=== PATIENT | male | born 1930 | race Caucasian/White ===

== ENCOUNTER 2016-08-16 05:19 | Inpatient (IN) | payer OTHER ==
[~2016-08-16 05:19] MED LIST: ceFAZolin 2 GM in Premix Bag 1 BAG IV ONE
[2016-08-16] MEDS ORDERED: Lactated Ringers 1,000 ML IV SCH ×3 (06:00→10:30)
[2016-08-16] MEDS ORDERED: Gentamicin 40 MG/ML 2 ML Vial ONE (06:37)
[2016-08-16] MEDS ORDERED: fentaNYL 100 MCG/2 ML SDV ONE (07:14)
[2016-08-16] MEDS ORDERED: Propofol 200 MG/20 ML SDV ONE ×2 (07:14→07:50)
[2016-08-16] MEDS ORDERED: ceFAZolin 2 GM in Premix Bag 1 BAG IV ONE (07:15)
[2016-08-16] MEDS: Tranexamic Acid 1,000 MG in Sodium Chloride 0.9% 50 ML IV SCH ×3 (07:49→09:38)
[2016-08-16] MEDS ORDERED: Ropivacaine 49.25 ML, Ketorolac 30 MG, EPINEPHrine 0.5 MG, cloNIDine 80 MCG, Sodium Chl... INJECT SCH ×5 (08:00)
[2016-08-16] MEDS ORDERED: Povidone-Iodine 10% Soln 118.25 ML Bottle ONE (08:52)
[2016-08-16] MEDS ORDERED: Bisacodyl 5 MG Tab PO PRN (09:24)
[2016-08-16] MEDS ORDERED: Docusate Sodium 100 MG Cap PO PRN (09:24)
[2016-08-16] MEDS ORDERED: Naloxone 0.4 MG/ML SDV IVPUSH PRN ×2 (09:24)
[2016-08-16] MEDS ORDERED: diphenhydrAMINE 50 MG/ML SDV IVPUSH PRN (09:24)
[2016-08-16] MEDS ORDERED: Ondansetron 4 MG/2 ML SDV IVPUSH PRN (09:24)
[2016-08-16] MEDS ORDERED: Morphine 2 MG/ML Syringe IVPUSH PRN (09:24)
[2016-08-16] MEDS ORDERED: Sennosides 8.6 MG Tab PO PRN (09:24)
[2016-08-16] MEDS ORDERED: Aluminum Hydroxide/Magnesium Hydroxide/Simethicone Susp 30 ML Cup PO PRN (09:24)
[2016-08-16] MEDS ORDERED: Zolpidem 5 MG Tab PO PRN (09:24)
[2016-08-16] MEDS ORDERED: Magnesium Hydroxide 400 MG/5 ML Susp 30 ML Cup PO PRN (09:24)
--- NOTE | 2016-08-16 09:54 | CR ---
Knee 1V or 2V Rt HISTORY: RIGHT KNEE SURGERY FINDINGS: Postoperative position and alignment right total knee arthroplasty appear satisfactory. No complicat ion can be seen. Anterior skin heather are noted. Air in the joint is consistent with the postoperat moi state. IMPRESSION: Satisfactory postoperative position and alignment right total knee arthroplasty. No complication jian ntified.
[2016-08-16] MEDS: Acetaminophen/oxyCODONE 325-5 MG Tab PO PRN ×3 (10:42→18:39)
--- NOTE | 2016-08-16 13:42 | OR ---
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 PROCEDURE: Right knee polyethylene exchange and full synovectomy. ANESTHESIA: Spinal plus conscious sedation. FLUID: Lactated Ringer solution. ESTIMATED BLOOD LOSS: 150 mL. COMPLICATIONS: None. SPECIMEN: None. DISCHARGE DISPOSITION: Stable to PACU. INSTRUMENTATION: Can Natural Nail #11 tibia right. HISTORY AND INDICATIONS FOR THE PROCEDURE: The patient had a total knee arthroplasty in 1995. He had done well until the last few months. He had extreme limited range of motion with pain. Preoperative imaging suggested the above-mentioned diagnosis. Risks and benefits of the procedure were explained to the patient. Informed consent was obtained. DETAILS OF PROCEDURE: The patient was seen preoperatively by myself and the anesthesia staff in the preop holding area, where the operative site was marked. He was brought to the operative suite by the Anesthesia staff, where conscious sedation and spinal anesthesia were administered. He was placed into a supine position on the table. All extremities were found to be well padded. A sterile Benjamin catheter was placed. The tourniquet was placed, which was well padded on the right side. The right lower extremity was then prepped and draped in a sterile manner. Time-out was called identifying the correct patient, correct procedure, correct site, and antibiotics had been given with appropriate period of time. Tourniquet was raised to 300 mmHg for 50 minutes and let down after the polyethylene insert was placed. A midline incision was made over the previous incision, three fingerbreadths proximal to the patella down to the level of the tibial tubercle. A medial parapatellar arthrotomy was made. A great deal of time was used to remove any hypertrophic synovium as well as extra bone which had formed within the distal femoral notch as well as around the patella, in a proximal tibia. The [employer] unit was used for hemostasis as well as Bovie electrocautery. The polyethylene insert was then removed using an osteotome. It appeared to be in relatively good condition. The knee was trialed with a 9 and 11. The 11 had less anterior-posterior motion in mid flexion, and provided excellent stability at full extension and 30 degrees of flexion with varus and valgus stress. I was able to remove a portion of the posterior capsule as well using Bovie electrocautery and Kochers. The knee was then copiously irrigated with saline. Any bleeders were controlled with the Aquamantys and then the final polyethylene was inserted. I then ranged the knee and was able to provide the previous mentioned stability with range of motion from full extension to 135 degrees of flexion. The knee was again copiously irrigated with saline and then with a diluted Betadine solution. Then, the knee was closed with two #5 Ethicon sutures as well as 0 Vicryl sutures in a [id number] watertight manner followed by irrigation, followed by 2- 0 Vicryl sutures, followed by heather, followed by Dermabond, followed by sterile dressing. The patient was then transferred to his hospital bed and taken to PACU in stable condition. José Luis Gonzalez DO /[id number]
[2016-08-16] MEDS: Pantoprazole 40 MG Tab.CR PO SCH (14:20)
[2016-08-16] MEDS: ceFAZolin 2 GM in Sodium Chloride 0.9% 50 ML IV SCH ×2 (14:22→21:41)
[2016-08-16] MEDS: Ketorolac 30 MG/ML SDV IVPUSH PRN (16:38)
--- NOTE | 2016-08-16 16:51 | PCM.CONS ---
H&P History of Present Illness - General Date of Service: 08/16/16 Admit Problem/Dx: Admission Diagnosis/Problem Admission Diagnosis/Problem Arthritis of knee Source of Information: Patient, Provider, RN Notes Reviewed History Limitations: Reports: No Limitations - History of Present Illness Initial Comments - Free Text/Narative: Mr. Bass is an 85-year-old gentleman been asked to see by Dr. Ananth Gonzalez for assistance in medical management after surgery. Patient underwent repair of the previous right total knee arthroplasty. He is been stable during the initial postoperative period, there was one episode of nausea but that now seems to resolve. He denies any chest pain or pressure or significant shortness of breath. Vital signs have been stable and he has remained afebrile. Right Knee Pain Score (Numeric/FACES): 9 - Related Data Allergies/Adverse Reactions: Allergies Allergy/AdvReac Type Severity Reaction Status Date / Time No Known Allergies Allergy Verified 05/04/15 13:00 Home Medications: Home Meds Omeprazole [priLOSEC OTC] 20 mg PO DAILY 05/04/15 [History] Aspirin 325 mg PO DAILY 05/05/15 [History] Ibuprofen [Advil] 200 mg PO Q6H PRN 07/14/16 [History] Alfuzosin [Uroxatral] 10 mg PO DAILY 08/16/16 [History] Calcium Carbonate/Vitamin D3 [Os-Tonio 500+D] 1 tab PO DAILY 08/16/16 [History] Cholecalciferol (Vitamin D3) [Vitamin D] 5,000 unit PO .M-W-F 08/16/16 [History] cycloSPORINE [Restasis Multidose] 1 drop EYEBOTH BID 08/16/16 [History] Past Medical History HEENT History: Reports: Cataract, Hard of Hearing, Impaired Vision, Other (See Below) Other HEENT History: wears glasses; bilat hearing aides; cornea problem Cardiovascular History: Reports: Blood Clots/VTE/DVT Gastrointestinal History: Reports: Colon Polyp, GERD, Hemorrhoids, Other (See Below) Other Gastrointestinal History: ulcers Genitourinary History: Reports: Prostate Disorder, Other (See Below) Other Genitourinary History: Prostate cancer Musculoskeletal History: Reports: Arthritis, Fracture, Osteoporosis, Other (See Below) 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 Neurological History: Reports: CVA, Other (See Below) Other Neuro History: crushed vertebrae in back r/t fall 1 year ago Endocrine/Metabolic History: Reports: Vitamin D Deficiency Hematologic History: Reports: Anemia, Blood Transfusion(s) Oncologic (Cancer) History: Reports: Malignant Melanoma, Prostate, Other (See Below) Other Oncologic History: skin caner Dermatologic History: Reports: Melanoma, Other (See Below) Other Dermatologic History: skin cancer - Infectious Disease History Infectious Disease History: Reports: Chicken Pox, Measles - Past Surgical History HEENT Surgical History: Reports: Cataract Surgery, LASIK, Tonsillectomy Cardiovascular Surgical History: Reports: None GI Surgical History: Reports: Appendectomy, Cholecystectomy, Colonoscopy, EGD, Hernia, Inguinal, Hernia Repair/Other Male Surgical History: Reports: Prostate Biopsy, Other (See Below) Other Male Surgeries/Procedures: prostates cancer. radiation Endocrine Surgical History: Reports: None Neurological Surgical History: Reports: None Musculoskeletal Surgical History: Reports: Knee Replacement Oncologic Surgical History: Reports: None Dermatological Surgical History: Reports: Skin Biopsy Social & Family History - Family History Neurological: Reports: CVA Hematologic: Reports: Anemia - Tobacco Use Smoking Status *Q: Former Smoker Years of Tobacco use: 15 Packs/Tins Daily: 1 Used Tobacco, but Quit: Yes Month Tobacco Last Used: 1961 Second Hand Smoke Exposure: No - Caffeine Use Caffeine Use: Reports: Coffee - Alcohol Use Days Per Week of Alcohol Use: 0 - Recreational Drug Use Recreational Drug Use: No H&P Review of Systems - Review of Systems: Review Of Systems: See Below General: Reports: No Symptoms Pulmonary: Reports: No Symptoms Cardiovascular: Reports: No Symptoms Gastrointestinal: Reports: No Symptoms Genitourinary: Reports: No Symptoms Musculoskeletal: Reports: Leg Pain Neurological: Reports: No Symptoms Exam - Exam Exam: See Below - Vital Signs Vital Signs: Last Vital Signs Temp 95.8 F 08/16/16 14:24 Pulse 74 08/16/16 14:24 Resp 16 08/16/16 14:24 BP 97/52 L 08/16/16 14:24 Pulse Ox 96 08/16/16 14:24 Weight: 170 lb 14.464 oz - Exam Neck: Supple, Trachea Midline, +2 Carotid Pulse wo Bruit Lungs: Clear to Auscultation, Normal Respiratory Effort Cardiovascular: Regular Rate, Regular Rhythm, Normal S1, Normal S2. No: Systolic Murmur, Diastolic Murmur Abdomen: Normal Bowel Sounds, Soft - Patient Data Lab Results last 24 hrs: Laboratory Results - last 24 hr 08/16/16 08/16/16 08/16/16 Range/Units 05:45 06:00 06:00 WBC 5.0 (4.5-11.0) K/uL RBC 3.50 L (4.30-5.90) M/uL Hgb 10.0 L D (12.0-15.0) g/dL Hct 30.9 L (40.0-54.0) % MCV 88 (80-98) fL MCH 29 (27-31) pg MCHC 32 (32-36) % Plt Count 250 (150-400) K/uL Neut % (Auto) 64 (36-66) % Lymph % (Auto) 22 L (24-44) % [place] % (Auto) 11 H (2-6) % Eos % (Auto) 3 (2-4) % Baso % (Auto) 0 (0-1) % Sodium 141 (140-148) mmol/L Potassium 3.8 (3.6-5.2) mmol/L Chloride 105 (100-108) mmol/L Carbon Dioxide 26 (21-32) mmol/L Anion Gap 9.7 (5.0-14.0) mmol/L BUN 15 (7-18) mg/dL Creatinine 1.2 (0.8-1.3) mg/dL Est Cr Clr Drug Dosing 43.54 mL/min Estimated GFR (MDRD) 58 L (>60) Glucose 115 H (74-106) mg/dL Calcium 8.3 L (8.5-10.1) mg/dL Total Bilirubin 0.7 (0.2-1.0) mg/dL AST 20 (15-37) U/L ALT 19 (12-78) U/L Alkaline Phosphatase 75 (46-116) U/L Total Protein 6.5 (6.4-8.2) g/dL Albumin 3.1 L (3.4-5.0) g/dL Globulin 3.4 (2.3-3.5) g/dL Albumin/Globulin Ratio 0.9 L (1.2-2.2) Blood Type O POSITIVE Gel Antibody Screen Negative Result Diagrams: 08/16/16 06:00 08/16/16 06:00 Consult PN Assessment/Plan Procedures: Procedures BLOOD TYPING SEROLOGIC ABO (07/14/16) BLOOD TYPING SEROLOGIC RH(D) (07/14/16) COMPLETE CBC W/AUTO DIFF WBC (05/12/16) CT CHEST SPINE W/O DYE (05/04/15) CT HEAD/BRAIN W/O DYE (05/04/15) CT NECK SPINE W/O DYE (05/04/15) CULTURE OTHR SPECIMN AEROBIC (07/14/16) CULTURE SCREEN ONLY (05/12/16) EMERGENCY DEPT VISIT (05/12/16) EMERGENCY DEPT VISIT (05/04/15) GAIT TRAINING THERAPY (12/25/15) HOT OR COLD PACKS THERAPY (12/05/13) INITIAL OBSERVATION CARE (05/04/15) INITIAL OBSERVATION CARE (05/04/15) OBSERVATION CARE DISCHARGE (05/04/15) PT EVALUATION (11/30/15) RBC ANTIBODY SCREEN (07/14/16) ROUTINE VENIPUNCTURE (07/14/16) STREP A AG IA (05/12/16) THERAPEUTIC EXERCISES (01/19/16) X-RAY EXAM OF HUMERUS (05/04/15) X-RAY EXAM OF KNEE 1 OR 2 (07/14/16) Problem List Initiated/Reviewed/Updated: Yes My Orders last 24 hours: My Active Orders 08/17/16 09:00 Omeprazole [priLOSEC OTC] 20 mg PO DAILY Plan: ASSESSMENT AND RECOMMENDATIONS STATUS POST SURGICAL PROCEDURE RIGHT KNEE-repair of previous total knee arthroplasty. Stable and doing well during the initial postoperative period. -Postoperative care per surgical service HISTORY OF PROSTATE CANCER-status post previous radiation therapy, resulting in frequent urination HISTORY OF MELANOMA-no evidence of recurrence on regular followup Requesting Provider: CORDELL Date Consult Requested: 08/16/16 Reason for Consult: Postop medical management Patient History Reviewed: Yes
[2016-08-16] MEDS: cycloSPORINE Ophth Drops U/D Box of 30 EYEBOTH SCH (20:10)
[2016-08-16] MEDS: Aspirin 325 MG Tab.EC PO SCH (20:11)
[2016-08-16] MEDS ORDERED: Aspirin 325 MG Tab.EC PO SCH (21:00)
[2016-08-16] MEDS ORDERED: Non-Formulary Medication 1 Each (Cyclosporine [Restasis Multidose] 1 DROP) EYEBOTH SCH (21:00)
[2016-08-17] MEDS: Acetaminophen/oxyCODONE 325-5 MG Tab PO PRN ×4 (02:32→21:25)
[2016-08-17] MEDS: ceFAZolin 2 GM in Sodium Chloride 0.9% 50 ML IV SCH (05:01)
[2016-08-17] MEDS: Ketorolac 30 MG/ML SDV IVPUSH PRN ×2 (06:34→16:13)
--- NOTE | 2016-08-17 08:32 | PCM.PN ---
- General Info Functional Status: Reports: pain controlled, tolerating diet, ambulating - Review of Systems General: Reports: No Symptoms HEENT: Reports: no symptoms Pulmonary: Reports: no symptoms Cardiovascular: Reports: No Symptoms Gastrointestinal: Reports: No symptoms Genitourinary: Reports: no symptoms Musculoskeletal: Reports: leg pain, joint pain Skin: Reports: other Neurological: Reports: No Symptoms Psychiatric: Reports: no symptoms - Patient Data Vitals - most recent: Last Vital Signs Temp 96.3 F 08/17/16 07:00 Pulse 70 08/17/16 07:00 Resp 16 08/17/16 07:00 BP 103/54 L 08/17/16 07:00 Pulse Ox 95 08/17/16 07:00 Weight - most recent: 170 lb 14.464 oz I&O - last 24 hours: Intake & Output 08/16/16 08/17/16 08/17/16 22:59 06:59 14:59 Intake Total 1012 1020 240 Output Total 250 260 Balance 762 760 240 Lab Results last 24 hrs: Laboratory Results - last 24 hr 08/16/16 08/16/16 08/17/16 Range/Units 06:00 06:00 05:57 WBC 5.0 5.6 (4.5-11.0) K/uL RBC 3.50 L 2.99 L (4.30-5.90) M/uL Hgb 10.0 L D 8.6 L (12.0-15.0) g/dL Hct 30.9 L 26.7 L (40.0-54.0) % MCV 88 89 (80-98) fL MCH 29 29 (27-31) pg MCHC 32 32 (32-36) % Plt Count 250 218 (150-400) K/uL Neut % (Auto) 64 70 H (36-66) % Lymph % (Auto) 22 L 18 L (24-44) % [place] % (Auto) 11 H 11 H (2-6) % Eos % (Auto) 3 1 L (2-4) % Baso % (Auto) 0 0 (0-1) % Sodium 141 (140-148) mmol/L Potassium 3.8 (3.6-5.2) mmol/L Chloride 105 (100-108) mmol/L Carbon Dioxide 26 (21-32) mmol/L Anion Gap 9.7 (5.0-14.0) mmol/L BUN 15 (7-18) mg/dL Creatinine 1.2 (0.8-1.3) mg/dL Est Cr Clr Drug Dosing 43.54 mL/min Estimated GFR (MDRD) 58 L (>60) Glucose 115 H (74-106) mg/dL Calcium 8.3 L (8.5-10.1) mg/dL Total Bilirubin 0.7 (0.2-1.0) mg/dL AST 20 (15-37) U/L ALT 19 (12-78) U/L Alkaline Phosphatase 75 (46-116) U/L Total Protein 6.5 (6.4-8.2) g/dL Albumin 3.1 L (3.4-5.0) g/dL Globulin 3.4 (2.3-3.5) g/dL Albumin/Globulin Ratio 0.9 L (1.2-2.2) / Range/Units 05:57 WBC (4.5-11.0) K/uL RBC (4.30-5.90) M/uL Hgb (12.0-15.0) g/dL Hct (40.0-54.0) % MCV (80-98) fL MCH (27-31) pg MCHC (32-36) % Plt Count (150-400) K/uL Neut % (Auto) (36-66) % Lymph % (Auto) (24-44) % [place] % (Auto) (2-6) % Eos % (Auto) (2-4) % Baso % (Auto) (0-1) % Sodium 138 L (140-148) mmol/L Potassium 4.2 (3.6-5.2) mmol/L Chloride 104 (100-108) mmol/L Carbon Dioxide 27 (21-32) mmol/L Anion Gap 11.2 (5.0-14.0) mmol/L BUN 17 (7-18) mg/dL Creatinine 1.1 (0.8-1.3) mg/dL Est Cr Clr Drug Dosing 47.50 mL/min Estimated GFR (MDRD) > 60 (>60) Glucose 107 H (74-106) mg/dL Calcium 7.8 L (8.5-10.1) mg/dL Total Bilirubin 0.6 (0.2-1.0) mg/dL AST 127 H D (15-37) U/L ALT 89 H (12-78) U/L Alkaline Phosphatase 85 (46-116) U/L Total Protein 5.7 L (6.4-8.2) g/dL Albumin 2.4 L (3.4-5.0) g/dL Globulin 3.3 (2.3-3.5) g/dL Albumin/Globulin Ratio 0.7 L (1.2-2.2) Med Orders - Current: Current Medications Al Hydroxide/Mg Hydroxide (Mag-Al Plus) 30 ml PO Q4H PRN PRN Reason: Constipation Aspirin (Ecotrin) 325 mg PO BID [facility] Last Admin: 08/16/16 20:11 Dose: 325 mg Bisacodyl (Dulcolax) 10 mg PO DAILY PRN PRN Reason: Constipation Cyclosporine (Restasis) 0 each EYEBOTH BID [facility] Last Admin: 08/16/16 20:10 Dose: 1 drop Diphenhydramine HCl (Benadryl) 25 mg IVPUSH Q4H PRN PRN Reason: Itching Docusate Sodium (Colace) 100 mg PO BID PRN PRN Reason: Constipation Lactated Ringer's (Ringers, Lactated) 1,000 mls @ 100 mls/hr IV ASDIRECTED [facility] Ketorolac Tromethamine (Toradol) 30 mg IVPUSH Q8H PRN PRN Reason: Pain Stop: 08/21/16 09:24 Last Admin: 08/17/16 06:34 Dose: 30 mg Magnesium Hydroxide (Milk Of Magnesia) 30 ml PO BID PRN PRN Reason: Constipation Morphine Sulfate (Morphine) 2 mg IVPUSH Q2H PRN PRN Reason: Pain Last Admin: 08/16/16 10:58 Dose: 2 mg Non-Formulary Medication (Alfuzosin [Uroxatral]) 10 mg PO DAILY [facility] Ondansetron HCl (Zofran) 8 mg IVPUSH Q4H PRN PRN Reason: Nausea/Vomiting Oxycodone/Acetaminophen (Percocet 325-5 Mg) 2 tab PO Q4H PRN PRN Reason: Pain Last Admin: 08/17/16 06:34 Dose: 2 tab Pantoprazole Sodium (Protonix) 40 mg PO DAILY@0730 [facility] Last Admin: 08/16/16 14:20 Dose: 40 mg Pantoprazole Sodium (Protonix) 40 mg PO DAILY@1600 [facility] Senna (Senna) 8.6 mg PO BID PRN PRN Reason: Constipation Sodium Chloride (Saline Flush) 10 ml FLUSH DAILY [facility] Tramadol HCl (Ultram) 100 mg PO Q6H PRN PRN Reason: Pain Zolpidem Tartrate (Ambien) 5 mg PO BEDTIME PRN PRN Reason: Sleep Discontinued Medications Aspirin (Ecotrin) 325 mg PO BID [facility] Ropivacaine 49.25 ml/Ketorolac Tromethamine 30 mg/Epinephrine HCl 0.5 mg/ Clonidine HCl 80 mcg/ Sodium Chloride 48.45 ml 0 ml INJECT ASDIRECTED [facility] Stop: 08/16/16 10:00 Last Admin: 08/16/16 09:14 Dose: 96 syringe Fentanyl (Sublimaze) Confirm Administered Dose 100 mcg .ROUTE .STK-MED [facility] Stop: 08/16/16 07:15 Gentamicin Sulfate (Gentamicin) Confirm Administered Dose 240 mg .ROUTE .STK- MED ONE Stop: 08/16/16 06:38 Last Admin: 08/16/16 07:30 Dose: 240 mg Lactated Ringer's (Ringers, Lactated) 1,000 mls @ 0 mls/hr IV ASDIRECTED [facility] PRN Reason: KVO Last Admin: 08/16/16 07:00 Dose: 25 mls/hr Cefazolin Sodium/Dextrose 2 gm (/ Premix) 50 mls @ 100 mls/hr IV ONCALL ONE Stop: 08/16/16 07:44 Last Admin: 08/16/16 07:17 Dose: 100 mls/hr Tranexamic Acid 1,000 mg/ (Sodium Chloride) 60 mls @ 240 mls/hr IV Q3H [facility] Stop: 08/16/16 11:14 Last Infusion: 08/16/16 09:38 Dose: Infused Lactated Ringer's (Ringers, Lactated) 1,000 mls @ 100 mls/hr IV ASDIRECTED [facility] Cefazolin Sodium 2 gm/ Sodium (Chloride) 50 mls @ 100 mls/hr IV Q8H [facility] Stop: 08/17/16 06:29 Last Admin: 08/17/16 05:01 Dose: 100 mls/hr Naloxone HCl (Narcan) 0.1 mg IVPUSH ONETIME PRN PRN Reason: Oversedation Stop: 08/16/16 09:25 Naloxone HCl (Narcan) 0.1 mg IVPUSH ONETIME PRN PRN Reason: Oversedation Stop: 08/16/16 09:25 Non-Formulary Medication (Alfuzosin [Uroxatral]) 10 mg PO DAILY [facility] Non-Formulary Medication (Cyclosporine [Restasis Multidose]) 1 drop EYEBOTH BID [facility] Pantoprazole Sodium (Protonix) 40 mg PO DAILY [facility] Povidone Iodine (Betadine 10% Soln) Confirm Administered Dose 1 ml .ROUTE .STK- MED ONE Stop: 08/16/16 08:53 Last Admin: 08/16/16 09:05 Dose: 30 ml Propofol (Diprivan 20 Ml) Confirm Administered Dose 200 mg .ROUTE .STK-MED ONE Stop: 08/16/16 07:15 Propofol (Diprivan 20 Ml) Confirm Administered Dose 200 mg .ROUTE .STK-MED ONE Stop: 08/16/16 07:51 Sodium Chloride (Saline Flush) 10 ml FLUSH DAILY [facility] - Exam General: alert, oriented HEENT: Pupils equal, Pupils reactive, EOMI Neck: supple Extremities: no calf tenderness Skin: warm, dry, intact Wound/Incisions: healing well, dressing dry and intact, no drainage Psy/Mental Status: alert, normal affect, normal mood (Patient ambulating well. Benjamin out 4 am. tolerating diet well. incisional pain only. ) - Problem List & Annotations (1) Status post total right knee replacement SNOMED Code(s): 0325244914857 Code(s): Z96.651 - PRESENCE OF RIGHT ARTIFICIAL KNEE JOINT Status: Acute Current Visit: Yes (2) Right knee pain SNOMED Code(s): 16194884 Code(s): M25.561 - PAIN IN RIGHT KNEE Status: Acute Current Visit: No Qualifiers: Chronicity: chronic Qualified Code(s): M25.561 - Pain in right knee; G89.29 - Other chronic pain (3) Primary osteoarthritis of right knee SNOMED Code(s): 862942588, 039396469 Code(s): M17.11 - UNILATERAL PRIMARY OSTEOARTHRITIS, RIGHT KNEE Status: Chronic Current Visit: No - Problem List Review Problem List Initiated/Reviewed/Updated: Yes - My Orders Last 24 Hours: My Active Orders 08/16/16 09:24 Patient Status [ADT] Routine Ambulate [RC] QID Intake and Output [RC] QSHIFT May Shower [RC] ASDIRECTED Neurovascular Check [RC] Q4HR Pulse Oximetry [RC] CONTINUOUS RT Incentive Spirometry [RC] Q2HWA Up to Chair [RC] QID Urinary Catheter Removal [RC] Per Unit Routine Vital Signs [RC] PER UNIT ROUTINE Wound Care [RC] Q12H Consult to Physician [CONS] Routine OT Evaluation and Treatment [CONS] Routine PT Evaluation and Treatment [CONS] Routine Acetaminophen/oxyCODONE [Percocet 325-5 MG] 2 tab PO Q4H PRN Alum Hydrox/Mag Hydrox/Simeth [Mag-Al Plus] 30 ml PO Q4H PRN Bisacodyl [Dulcolax] 10 mg PO DAILY PRN Docusate Sodium [Colace] 100 mg PO BID PRN Ketorolac [Toradol] 30 mg IVPUSH Q8H PRN Magnesium Hydroxide [Milk of Magnesia] 30 ml PO BID PRN Morphine 2 mg IVPUSH Q2H PRN Ondansetron [Zofran] 8 mg IVPUSH Q4H PRN Sennosides [Senna] 8.6 mg PO BID PRN Zolpidem [Ambien] 5 mg PO BEDTIME PRN diphenhydrAMINE [Benadryl] 25 mg IVPUSH Q4H PRN traMADol [Ultram] 100 mg PO Q6H PRN Sequential Compression Device [OM.PC] Per Unit Routine Resuscitation Status Routine 08/16/16 09:25 Notify Provider Consults [RC] ASDIRECTED 08/16/16 09:30 Convert IV to Saline Lock [OM.PC] PER UNIT ROUTINE Ice Therapy [OM.PC] PER UNIT ROUTINE 08/16/16 10:30 Lactated Ringers [Ringers, Lactated] 1,000 ml IV ASDIRECTED 08/16/16 12:00 Pantoprazole [ProTONIX] 40 mg PO DAILY@0730 08/16/16 21:00 Aspirin [Ecotrin] 325 mg PO BID cycloSPORINE [Restasis] 0 each EYEBOTH BID 08/16/16 Lunch Advance Diet Instructions [DIET] 08/17/16 09:00 Alfuzosin [Uroxatral] 10 mg PO DAILY Sodium Chloride 0.9% [Saline Flush] 10 ml FLUSH DAILY 08/18/16 05:15 CBC WITH AUTO DIFF [HEME] DAILY COMPREHENSIVE METABOLIC PN,CMP [CHEM] DAILY 08/19/16 05:15 CBC WITH AUTO DIFF [HEME] DAILY COMPREHENSIVE METABOLIC PN,CMP [CHEM] DAILY 08/20/16 05:15 CBC WITH AUTO DIFF [HEME] DAILY COMPREHENSIVE METABOLIC PN,CMP [CHEM] DAILY - Plan Plan:: A: POD 1 Right knee synovectomy and polyethylene exchange 1) PT/OT 2) Pain control 3) Lovenox bridge for coumadin per medicine starting today Will DC to home tomorrow after therapy has more time to go over exercises.
[2016-08-17] MEDS ORDERED: Pantoprazole 40 MG Tab.CR PO SCH ×2 (09:00→16:00)
[2016-08-17] MEDS ORDERED: Sodium Chloride 0.9% 10 ML Syringe FLUSH SCH (09:00)
[2016-08-17] MEDS ORDERED: ALFUZOSIN 10 MG PO SCH (09:00)
[2016-08-17] MEDS: Pantoprazole 40 MG Tab.CR PO SCH (09:02)
[2016-08-17] MEDS: Aspirin 325 MG Tab.EC PO SCH ×2 (09:03→21:25)
[2016-08-17] MEDS: cycloSPORINE Ophth Drops U/D Box of 30 EYEBOTH SCH ×2 (09:03→21:24)
[2016-08-17] MEDS: Sodium Chloride 0.9% 10 ML Syringe FLUSH SCH (09:03)
[2016-08-17] MEDS: ALFUZOSIN 10 MG PO SCH (10:50)
--- NOTE | 2016-08-17 12:24 | PCM.CONSN ---
- General Info Date of Service: 08/17/16 Functional Status: Reports: pain controlled, tolerating diet, ambulating - Review of Systems General: Reports: No Symptoms Cardiovascular: Reports: No Symptoms Gastrointestinal: Reports: No symptoms Genitourinary: Reports: no symptoms Systems Review Comment:: This patient has done well since surgery yesterday, he has been up and ambulating in the hallways. Denies significant nausea, chest pain, or shortness of breath, pain has been well-controlled. Vital signs are stable and he has remained hemodynamically stable. - Patient Data Vitals - most recent: Last Vital Signs Temp 96.2 F 08/17/16 11:07 Pulse 68 08/17/16 11:07 Resp 16 08/17/16 11:07 BP 115/64 08/17/16 11:07 Pulse Ox 94 L 08/17/16 11:07 Weight - most recent: 170 lb 14.464 oz I&O - last 24 hours: Intake & Output 08/16/16 08/17/16 08/17/16 22:59 06:59 14:59 Intake Total 1012 1020 240 Output Total 250 260 Balance 762 760 240 Lab Results last 24 hrs: Laboratory Results - last 24 hr 08/17/16 08/17/16 Range/Units 05:57 05:57 WBC 5.6 (4.5-11.0) K/uL RBC 2.99 L (4.30-5.90) M/uL Hgb 8.6 L (12.0-15.0) g/dL Hct 26.7 L (40.0-54.0) % MCV 89 (80-98) fL MCH 29 (27-31) pg MCHC 32 (32-36) % Plt Count 218 (150-400) K/uL Neut % (Auto) 70 H (36-66) % Lymph % (Auto) 18 L (24-44) % [place] % (Auto) 11 H (2-6) % Eos % (Auto) 1 L (2-4) % Baso % (Auto) 0 (0-1) % Sodium 138 L (140-148) mmol/L Potassium 4.2 (3.6-5.2) mmol/L Chloride 104 (100-108) mmol/L Carbon Dioxide 27 (21-32) mmol/L Anion Gap 11.2 (5.0-14.0) mmol/L BUN 17 (7-18) mg/dL Creatinine 1.1 (0.8-1.3) mg/dL Est Cr Clr Drug Dosing 47.50 mL/min Estimated GFR (MDRD) > 60 (>60) Glucose 107 H (74-106) mg/dL Calcium 7.8 L (8.5-10.1) mg/dL Total Bilirubin 0.6 (0.2-1.0) mg/dL AST 127 H D (15-37) U/L ALT 89 H (12-78) U/L Alkaline Phosphatase 85 (46-116) U/L Total Protein 5.7 L (6.4-8.2) g/dL Albumin 2.4 L (3.4-5.0) g/dL Globulin 3.3 (2.3-3.5) g/dL Albumin/Globulin Ratio 0.7 L (1.2-2.2) Med Orders - Current: Current Medications Al Hydroxide/Mg Hydroxide (Mag-Al Plus) 30 ml PO Q4H PRN PRN Reason: Constipation Aspirin (Ecotrin) 325 mg PO BID [facility] Last Admin: 08/17/16 09:03 Dose: 325 mg Bisacodyl (Dulcolax) 10 mg PO DAILY PRN PRN Reason: Constipation Cyclosporine (Restasis) 0 each EYEBOTH BID [facility] Last Admin: 08/17/16 09:03 Dose: 1 drop Diphenhydramine HCl (Benadryl) 25 mg IVPUSH Q4H PRN PRN Reason: Itching Docusate Sodium (Colace) 100 mg PO BID PRN PRN Reason: Constipation Lactated Ringer's (Ringers, Lactated) 1,000 mls @ 100 mls/hr IV ASDIRECTED [facility] Ketorolac Tromethamine (Toradol) 30 mg IVPUSH Q8H PRN PRN Reason: Pain Stop: 08/21/16 09:24 Last Admin: 08/17/16 06:34 Dose: 30 mg Magnesium Hydroxide (Milk Of Magnesia) 30 ml PO BID PRN PRN Reason: Constipation Morphine Sulfate (Morphine) 2 mg IVPUSH Q2H PRN PRN Reason: Pain Last Admin: 08/16/16 10:58 Dose: 2 mg (Alfuzosin [ Uroxatral] 10 Mg)* Pom* 10 mg PO DAILY@0800 [facility] Last Admin: 08/17/16 10:50 Dose: 10 mg Ondansetron HCl (Zofran) 8 mg IVPUSH Q4H PRN PRN Reason: Nausea/Vomiting Oxycodone/Acetaminophen (Percocet 325-5 Mg) 2 tab PO Q4H PRN PRN Reason: Pain Last Admin: 08/17/16 12:11 Dose: 2 tab Pantoprazole Sodium (Protonix) 40 mg PO DAILY@0730 [facility] Last Admin: 08/17/16 09:02 Dose: 40 mg Pantoprazole Sodium (Protonix) 40 mg PO DAILY@1600 [facility] Senna (Senna) 8.6 mg PO BID PRN PRN Reason: Constipation Sodium Chloride (Saline Flush) 10 ml FLUSH DAILY [facility] Last Admin: 08/17/16 09:03 Dose: 10 ml Tramadol HCl (Ultram) 100 mg PO Q6H PRN PRN Reason: Pain Zolpidem Tartrate (Ambien) 5 mg PO BEDTIME PRN PRN Reason: Sleep Discontinued Medications Aspirin (Ecotrin) 325 mg PO BID [facility] Ropivacaine 49.25 ml/Ketorolac Tromethamine 30 mg/Epinephrine HCl 0.5 mg/ Clonidine HCl 80 mcg/ Sodium Chloride 48.45 ml 0 ml INJECT ASDIRECTED [facility] Stop: 08/16/16 10:00 Last Admin: 08/16/16 09:14 Dose: 96 syringe Fentanyl (Sublimaze) Confirm Administered Dose 100 mcg .ROUTE .STK-MED ONE Stop: 08/16/16 07:15 Gentamicin Sulfate (Gentamicin) Confirm Administered Dose 240 mg .ROUTE .STK- MED ONE Stop: 08/16/16 06:38 Last Admin: 08/16/16 07:30 Dose: 240 mg Lactated Ringer's (Ringers, Lactated) 1,000 mls @ 0 mls/hr IV ASDIRECTED [facility] PRN Reason: KVO Last Admin: 08/16/16 07:00 Dose: 25 mls/hr Cefazolin Sodium/Dextrose 2 gm (/ Premix) 50 mls @ 100 mls/hr IV ONCALL ONE Stop: 08/16/16 07:44 Last Admin: 08/16/16 07:17 Dose: 100 mls/hr Tranexamic Acid 1,000 mg/ (Sodium Chloride) 60 mls @ 240 mls/hr IV Q3H [facility] Stop: 08/16/16 11:14 Last Infusion: 08/16/16 09:38 Dose: Infused Lactated Ringer's (Ringers, Lactated) 1,000 mls @ 100 mls/hr IV ASDIRECTED [facility] Cefazolin Sodium 2 gm/ Sodium (Chloride) 50 mls @ 100 mls/hr IV Q8H [facility] Stop: 08/17/16 06:29 Last Admin: 08/17/16 05:01 Dose: 100 mls/hr Naloxone HCl (Narcan) 0.1 mg IVPUSH ONETIME PRN PRN Reason: Oversedation Stop: 08/16/16 09:25 Naloxone HCl (Narcan) 0.1 mg IVPUSH ONETIME PRN PRN Reason: Oversedation Stop: 08/16/16 09:25 Non-Formulary Medication (Alfuzosin [Uroxatral]) 10 mg PO DAILY [facility] Non-Formulary Medication (Cyclosporine [Restasis Multidose]) 1 drop EYEBOTH BID [facility] Pantoprazole Sodium (Protonix) 40 mg PO DAILY [facility] Povidone Iodine (Betadine 10% Soln) Confirm Administered Dose 1 ml .ROUTE .STK- MED ONE Stop: 08/16/16 08:53 Last Admin: 08/16/16 09:05 Dose: 30 ml Propofol (Diprivan 20 Ml) Confirm Administered Dose 200 mg .ROUTE .STK-MED ONE Stop: 08/16/16 07:15 Propofol (Diprivan 20 Ml) Confirm Administered Dose 200 mg .ROUTE .STK-MED ONE Stop: 08/16/16 07:51 Sodium Chloride (Saline Flush) 10 ml FLUSH DAILY [facility] - Exam Quality Assessment: DVT prophylaxis General: alert, oriented, cooperative, no acute distress Lungs: Clear to auscultation, Normal respiratory effort Cardiovascular: Regular Rate, Regular Rhythm Abdomen: bowel sounds present, soft, no tenderness, no distension Extremities: no edema Consult PN Assessment/Plan Procedures: Procedures BLOOD TYPING SEROLOGIC ABO (07/14/16) BLOOD TYPING SEROLOGIC RH(D) (07/14/16) COMPLETE CBC W/AUTO DIFF WBC (05/12/16) CT CHEST SPINE W/O DYE (05/04/15) CT HEAD/BRAIN W/O DYE (05/04/15) CT NECK SPINE W/O DYE (05/04/15) CULTURE OTHR SPECIMN AEROBIC (07/14/16) CULTURE SCREEN ONLY (05/12/16) EMERGENCY DEPT VISIT (05/12/16) EMERGENCY DEPT VISIT (05/04/15) GAIT TRAINING THERAPY (12/25/15) HOT OR COLD PACKS THERAPY (12/05/13) INITIAL OBSERVATION CARE (05/04/15) INITIAL OBSERVATION CARE (05/04/15) OBSERVATION CARE DISCHARGE (05/04/15) PT EVALUATION (11/30/15) RBC ANTIBODY SCREEN (07/14/16) ROUTINE VENIPUNCTURE (07/14/16) STREP A AG IA (05/12/16) THERAPEUTIC EXERCISES (01/19/16) X-RAY EXAM OF HUMERUS (05/04/15) X-RAY EXAM OF KNEE 1 OR 2 (07/14/16) Problem List Initiated/Reviewed/Updated: Yes My Orders last 24 hours: My Active Orders 08/17/16 16:00 Pantoprazole [ProTONIX] 40 mg PO DAILY@1600 Plan: ASSESSMENT AND RECOMMENDATIONS STATUS POST SURGICAL PROCEDURE RIGHT KNEE-repair of previous total knee arthroplasty. Stable and doing well since surgery yesterday -Postoperative care per surgical service HISTORY OF PROSTATE CANCER-status post previous radiation therapy, resulting in frequent urination HISTORY OF MELANOMA-no evidence of recurrence on regular followup
[2016-08-17] MEDS ORDERED: Sodium Chloride 0.9% 1,000 ML IV SCH (16:00)
[2016-08-18] MEDS: traMADol 50 MG Tab PO PRN ×2 (03:46→09:38)
[2016-08-18 07:28] VITALS: BP 117/62
[2016-08-18] MEDS: Pantoprazole 40 MG Tab.CR PO SCH (07:35)
[2016-08-18] MEDS ORDERED: Acetaminophen 325 MG Tab PO PRN (09:31)
[2016-08-18] MEDS: cycloSPORINE Ophth Drops U/D Box of 30 EYEBOTH SCH (09:38)
[2016-08-18] MEDS: ALFUZOSIN 10 MG PO SCH (09:39)
[2016-08-18] MEDS: Aspirin 325 MG Tab.EC PO SCH (09:40)
[2016-08-18] MEDS: Sodium Chloride 0.9% 10 ML Syringe FLUSH SCH (09:40)
--- NOTE | 2016-08-22 09:59 | PCM.DCSUM1 ---
Discharge Summary - Hospital Course Free Text/Narrative:: Jc is a pleasant 85 year old male who is status post day 3 of a right knee poly exchange. He is doing well. He has no concerns a this time. His pain is controlled with oral pain medication. He is going well with PT/OT. He has extension to 30 degrees and flexion to 90 degrees. - Discharge Data Discharge Date: 08/25/16 Discharge Disposition: Home, Self-Care 01 Condition: Good - Discharge Diagnosis/Problem(s) (1) Status post total right knee replacement SNOMED Code(s): 5270256413157 ICD Code: Z96.651 - PRESENCE OF RIGHT ARTIFICIAL KNEE JOINT Status: Acute - Patient Summary/Data Consults: Consultations 08/16/16 09:24 Consult to Physician [CONS] Routine Consulting Provider: Kei Bauer Call Completed to Consulting Physician: Yes OT Evaluation and Treatment [CONS] Routine Please Evaluate and Treat. OT Reason for Consult: Strengthening This query below is only for informational purposes and is not editable. PT Evaluation and Treatment [CONS] Routine Please Evaluate and Treat. PT Reason for Consult: Strengthening This query below is only for informational purposes and is not editable. - Patient Instructions Diet: Usual Diet as Tolerated Activity: Apply Ice, As Tolerated, Full Weight Bearing Driving: Do Not Drive Showering/Bathing: May Shower Wound/Incision Care: Keep Operative Site/Wound Site Clean and Dry, Change Dressing Daily Notify Provider of: Fever, Increased Pain, Swelling and Redness, Drainage, Nausea and/or Vomiting - Discharge Plan Prescriptions/Med Rec: Acetaminophen/oxyCODONE [Percocet 325-5 MG] 2 tab PO Q6HR #120 tablet Home Medications: Home Meds Omeprazole [priLOSEC OTC] 20 mg PO DAILY 05/04/15 [History] Ibuprofen [Advil] 200 mg PO Q6H PRN 07/14/16 [History] Alfuzosin [Uroxatral] 10 mg PO DAILY 08/16/16 [History] Calcium Carbonate/Vitamin D3 [Os-Tonio 500+D] 1 tab PO DAILY 08/16/16 [History] Cholecalciferol (Vitamin D3) [Vitamin D] 5,000 unit PO .M-W-F 08/16/16 [History] cycloSPORINE [Restasis Multidose] 1 drop EYEBOTH BID 08/16/16 [History] Acetaminophen/oxyCODONE [Percocet 325-5 MG] 2 tab PO Q6HR #120 tablet 08/18/16 [ Rx] - Discharge Summary/Plan Comment Discharge Summary/Plan Comment: Jc is to go home with home health today. He will have PT/OT at home with [facility]. He is to follow up with orthopedic clinic in 2 weeks. He is to take percocet, ultram, and aspirin as prescribed. He is to call at any time he has any other issues. - Patient Data Vitals - Most Recent: Last Vital Signs Temp 36.5 C 08/18/16 07:26 Pulse 107 H 08/18/16 07:26 Resp 16 08/18/16 07:26 BP 117/62 08/18/16 07:26 Pulse Ox 94 L 08/18/16 07:26 Weight - Most Recent: 170 lb 14.464 oz Med Orders - Current: Current Medications Discontinued Medications Acetaminophen (Tylenol) 650 mg PO Q4H PRN PRN Reason: Pain Last Admin: 08/18/16 09:37 Dose: 650 mg Al Hydroxide/Mg Hydroxide (Mag-Al Plus) 30 ml PO Q4H PRN PRN Reason: Constipation Aspirin (Ecotrin) 325 mg PO BID [facility] Aspirin (Ecotrin) 325 mg PO BID [facility] Last Admin: 08/18/16 09:40 Dose: 325 mg Bisacodyl (Dulcolax) 10 mg PO DAILY PRN PRN Reason: Constipation Ropivacaine 49.25 ml/Ketorolac Tromethamine 30 mg/Epinephrine HCl 0.5 mg/ Clonidine HCl 80 mcg/ Sodium Chloride 48.45 ml 0 ml INJECT ASDIRECTED [facility] Stop: 08/16/16 10:00 Last Admin: 08/16/16 09:14 Dose: 96 syringe Cyclosporine (Restasis) 0 each EYEBOTH BID [facility] Last Admin: 08/18/16 09:38 Dose: 1 drop Diphenhydramine HCl (Benadryl) 25 mg IVPUSH Q4H PRN PRN Reason: Itching Last Admin: 08/17/16 21:25 Dose: 25 mg Docusate Sodium (Colace) 100 mg PO BID PRN PRN Reason: Constipation Fentanyl (Sublimaze) Confirm Administered Dose 100 mcg .ROUTE .STK-MED ONE Stop: 08/16/16 07:15 Gentamicin Sulfate (Gentamicin) Confirm Administered Dose 240 mg .ROUTE .STK- MED ONE Stop: 08/16/16 06:38 Last Admin: 08/16/16 07:30 Dose: 240 mg Lactated Ringer's (Ringers, Lactated) 1,000 mls @ 0 mls/hr IV ASDIRECTED [facility] PRN Reason: KVO Last Admin: 08/16/16 07:00 Dose: 25 mls/hr Cefazolin Sodium/Dextrose 2 gm (/ Premix) 50 mls @ 100 mls/hr IV ONCALL ONE Stop: 08/16/16 07:44 Last Admin: 08/16/16 07:17 Dose: 100 mls/hr Tranexamic Acid 1,000 mg/ (Sodium Chloride) 60 mls @ 240 mls/hr IV Q3H [facility] Stop: 08/16/16 11:14 Last Infusion: 08/16/16 09:38 Dose: Infused Lactated Ringer's (Ringers, Lactated) 1,000 mls @ 100 mls/hr IV ASDIRECTED [facility] Lactated Ringer's (Ringers, Lactated) 1,000 mls @ 100 mls/hr IV ASDIRECTED [facility] Cefazolin Sodium 2 gm/ Sodium (Chloride) 50 mls @ 100 mls/hr IV Q8H [facility] Stop: 08/17/16 06:29 Last Admin: 08/17/16 05:01 Dose: 100 mls/hr Sodium Chloride (Normal Saline) 1,000 mls @ 100 mls/hr IV ASDIRECTED [facility] Last Admin: 08/17/16 20:11 Dose: 100 mls/hr Ketorolac Tromethamine (Toradol) 30 mg IVPUSH Q8H PRN PRN Reason: Pain Stop: 08/21/16 09:24 Last Admin: 08/17/16 16:13 Dose: 30 mg Magnesium Hydroxide (Milk Of Magnesia) 30 ml PO BID PRN PRN Reason: Constipation Last Admin: 08/18/16 03:47 Dose: 30 ml Morphine Sulfate (Morphine) 2 mg IVPUSH Q2H PRN PRN Reason: Pain Last Admin: 08/16/16 10:58 Dose: 2 mg Naloxone HCl (Narcan) 0.1 mg IVPUSH ONETIME PRN PRN Reason: Oversedation Stop: 08/16/16 09:25 Naloxone HCl (Narcan) 0.1 mg IVPUSH ONETIME PRN PRN Reason: Oversedation Stop: 08/16/16 09:25 Non-Formulary Medication (Alfuzosin [Uroxatral]) 10 mg PO DAILY [facility] Non-Formulary Medication (Cyclosporine [Restasis Multidose]) 1 drop EYEBOTH BID [facility] (Alfuzosin [ Uroxatral] 10 Mg)* Pom* 10 mg PO DAILY@0800 [facility] Last Admin: 08/18/16 09:39 Dose: 10 mg Ondansetron HCl (Zofran) 8 mg IVPUSH Q4H PRN PRN Reason: Nausea/Vomiting Oxycodone/Acetaminophen (Percocet 325-5 Mg) 2 tab PO Q4H PRN PRN Reason: Pain Last Admin: 08/17/16 21:25 Dose: 2 tab Pantoprazole Sodium (Protonix) 40 mg PO DAILY [facility] Pantoprazole Sodium (Protonix) 40 mg PO DAILY@0730 [facility] Last Admin: 08/18/16 07:35 Dose: 40 mg Povidone Iodine (Betadine 10% Soln) Confirm Administered Dose 1 ml .ROUTE .STK- MED ONE Stop: 08/16/16 08:53 Last Admin: 08/16/16 09:05 Dose: 30 ml Propofol (Diprivan 20 Ml) Confirm Administered Dose 200 mg .ROUTE .STK-MED ONE Stop: 08/16/16 07:15 Propofol (Diprivan 20 Ml) Confirm Administered Dose 200 mg .ROUTE .STK-MED ONE Stop: 08/16/16 07:51 Senna (Senna) 8.6 mg PO BID PRN PRN Reason: Constipation Sodium Chloride (Saline Flush) 10 ml FLUSH DAILY [facility] Sodium Chloride (Saline Flush) 10 ml FLUSH DAILY [facility] Last Admin: 08/18/16 09:40 Dose: 10 ml Tramadol HCl (Ultram) 100 mg PO Q6H PRN PRN Reason: Pain Last Admin: 08/18/16 09:38 Dose: 100 mg Zolpidem Tartrate (Ambien) 5 mg PO BEDTIME PRN PRN Reason: Sleep - Exam General: Reports: alert, oriented Extremities: Reports: normal pulses, no tenderness/swelling Skin: Reports: warm, dry, intact Wound/Incisions: Reports: healing well, dressing dry and intact, no drainage Neurological: Reports: no new focal deficit Psy/Mental Status: Reports: alert *Q Meaningful Use (DIS) - VTE *Q VTE Criteria *Q: - Stroke *Q Stroke Criteria *Q: - AMI *Q AMI Criteria *Q:
== END 2016-08-18 13:30 | disposition home or self-care (01) | DRG 465 ==
LOC: JP.SDS 05:19 → JP.SDSSCHI 05:19 → EDSTATUS 07:30 → JP.MS 09:24
PROVIDERS: ADMIT Orthopaedic Surgery; ATTEND Orthopaedic Surgery
PROC: 0SBC0ZZ Excision of Right Knee Joint, Open Approach (ICD-10-PCS; principal; 2016-08-16)
PROC: 0SUC09Z Supplement Right Knee Joint with Liner, Open Approach (ICD-10-PCS; principal; 2016-08-16)
PROC: 0SPC09Z Removal of Liner from Right Knee Joint, Open Approach (ICD-10-PCS; principal; 2016-08-16)
DX: T84.062A Wear of articular bearing surface of internal prosthetic right knee joint, initial encounter (principal); M67.261 Synovial hypertrophy, not elsewhere classified, right lower leg; M17.11 Unilateral primary osteoarthritis, right knee; G89.29 Other chronic pain; Z96.651 Presence of right artificial knee joint; K21.9 Gastro-esophageal reflux disease without esophagitis; H90.5 Unspecified sensorineural hearing loss; Z86.73 Personal history of transient ischemic attack (TIA), and cerebral infarction without residual deficits; Z85.820 Personal history of malignant melanoma of skin; Z85.46 Personal history of malignant neoplasm of prostate; Z92.3 Personal history of irradiation; Z87.891 Personal history of nicotine dependence; Z86.718 Personal history of other venous thrombosis and embolism; Z79.82 Long term (current) use of aspirin
CPT/HCPCS: 36415; 51798; 73560-26-RT; 73560-RT; 80053; 85025; 86850; 86900; 86901; 94762; 97110-GP; 97116-GP; 97140-GP; 97162-GP; 97165-GO; 97530-GP; A9270-GY; C1776; J0690; J1200; J1580; J1885; J2270; J2704; J2795; J3010; J7040; J7050; J7120

== ENCOUNTER 2018-12-26 11:44 | Emergency (ER) | payer MEDICARE, OTHER ==
[2018-12-26 12:48] VITALS: BP 143/70; PULSE 71
--- NOTE | 2018-12-26 14:16 | CRLCT ---
INDICATION: Status post fall, striking the head. COMPARISON: 05/04/2015 TECHNIQUE: CT examination of the head was performed with 3 mm thick axial sections without intravenous contrast. Images were obtained from the vertex of the skull through the skull base, and I examined the images with the brain and bone windows. Please note that all CT scans at this facility use dose modulation, iterative reconstruction, and/or weight-based dosing when appropriate to reduce radiation dose to as low as reasonably achievable. FINDINGS: The brain is normal in appearance for the patient`s age on today`s study, with no sign of mass lesion, mass effect, hemorrhage, or edema. There is stable moderate dilatation of the ventricles and sulci representing age-appropriate atrophy. There is stable mild periventricular and subcortical white matter hypodensity from age appropriate small vessel ischemia. The visualized portions of the orbits are normal in appearance status post cataract surgery. The visualized paranasal sinuses and mastoids are clear. The osseous structures are normal in their appearance with no sign of abnormality in the skull base or calvarium. IMPRESSION: No sign of closed head injury. Stable appearance of the brain, with moderate, age-appropriate atrophy and mild age-appropriate small vessel ischemic changes. Please note that all CT scans at this facility use dose modulation, iterative reconstruction, and/or weight-based dosing when appropriate to reduce radiation dose to as low as reasonably achievable. Dictated by Corky Feliz MD @ Dec 26 2018 2:11PM Signed by Dr. Corky Feliz @ Dec 26 2018 2:15PM
--- NOTE | 2018-12-26 14:25 | CRLCR ---
INDICATION: Fall with rib pain TECHNIQUE: Chest 2 views COMPARISON: November 13, 2011 FINDINGS: Cardiovascular and mediastinum: Heart size and vasculature are normal in caliber and appearance. Lungs and pleural spaces: Lungs are clear. No sign of infiltrate or mass. No sign of pleural effusion. No pneumothorax. Bones and soft tissues: At least 1 subacute or chronic appearing posterior left rib fracture is present. No other abnormality. IMPRESSION: Subacute or chronic appearing fracture in the posterior left 6th rib. Remainder of the chest is unremarkable. Dictated by John Kelly MD @ Dec 26 2018 2:20PM Signed by Dr. John Kelly @ Dec 26 2018 2:23PM
[2018-12-26] MEDS ORDERED: Lidocaine 1% with EPINEPHrine 1:100,000 50 ML MDV INJECT STA (14:33)
--- NOTE | 2018-12-26 15:33 | EDM.PDOC ---
ED HPI GENERAL MEDICAL PROBLEM - General Chief Complaint: Laceration Stated Complaint: FELL ON STREET Time Seen by Provider: 12/26/18 13:15 - History of Present Illness INITIAL COMMENTS - FREE TEXT/NARRATIVE: 88 yo presents with concerns of facial laceration He fell on a curb with headstrike. Denies LOC. No CHAUDHRY or vision changes. No neck pain No extremity weakness. Is concerned of some right sided rib pain as well. No dyspnea. Right Face/Facial Pain Score (Numeric/FACES): 2 - Related Data Allergies Allergy/AdvReac Type Severity Reaction Status Date / Time No Known Allergies Allergy Verified 05/01/18 13:39 Home Meds: Home Meds Omeprazole [priLOSEC OTC] 20 mg PO DAILY 05/04/15 [History] Calcium Carbonate/Vitamin D3 [Os-Tonio 500+D] 1 tab PO TID 08/16/16 [History] Cholecalciferol (Vitamin D3) [Vitamin D] 2,000 unit PO ASDIRECTED 08/16/16 [ History] cycloSPORINE [Restasis Multidose] 1 drop EYEBOTH BID 08/16/16 [History] Aspirin 325 mg PO DAILY 12/08/16 [History] Past Medical History HEENT History: Reports: Cataract, Hard of Hearing, Impaired Vision, Other (See Below) Other HEENT History: wears glasses; bilat hearing aides; cornea problem,,,left ear deaf Cardiovascular History: Reports: Aneurysm, Blood Clots/VTE/DVT Gastrointestinal History: Reports: Colon Polyp, GERD, Hemorrhoids, Other (See Below) Other Gastrointestinal History: ulcers Genitourinary History: Reports: Prostate Disorder, Other (See Below) Other Genitourinary History: Prostate cancer Musculoskeletal History: Reports: Arthritis, Fracture, Osteoporosis, Other (See Below) 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 R knee pain Neurological History: Reports: CVA, Other (See Below) Other Neuro History: crushed vertebrae in back 2016 Endocrine/Metabolic History: Reports: Vitamin D Deficiency Hematologic History: Reports: Anemia, Blood Transfusion(s) Oncologic (Cancer) History: Reports: Malignant Melanoma, Prostate, Other (See Below) Other Oncologic History: skin caner Dermatologic History: Reports: Melanoma, Other (See Below) Other Dermatologic History: skin cancer - Infectious Disease History Infectious Disease History: Reports: Chicken Pox, Measles, Mumps, Pertussis ( Whooping Cough) - Past Surgical History Head Surgeries/Procedures: Reports: None HEENT Surgical History: Reports: Cataract Surgery, LASIK, Tonsillectomy Cardiovascular Surgical History: Reports: None GI Surgical History: Reports: Appendectomy, Cholecystectomy, Colonoscopy, EGD, Hernia, Inguinal, Hernia Repair/Other Male Surgical History: Reports: Prostate Biopsy, Other (See Below) Other Male Surgeries/Procedures: prostates cancer. radiation Endocrine Surgical History: Reports: None Neurological Surgical History: Reports: None Musculoskeletal Surgical History: Reports: Knee Replacement Oncologic Surgical History: Reports: None Dermatological Surgical History: Reports: Skin Biopsy Social & Family History - Family History Neurological: Reports: CVA Hematologic: Reports: Anemia - Tobacco Use Smoking Status *Q: Never Smoker - Caffeine Use Caffeine Use: Reports: Coffee - Recreational Drug Use Recreational Drug Use: No ED ROS GENERAL - Review of Systems Review Of Systems: See Below Constitutional: Reports: No Symptoms HEENT: Reports: No Symptoms Respiratory: Denies: Shortness of Breath Cardiovascular: Reports: No Symptoms Endocrine: Reports: No Symptoms GI/Abdominal: Reports: No Symptoms : Reports: No Symptoms Musculoskeletal: Reports: No Symptoms Skin: Reports: Wound Neurological: Reports: No Symptoms Psychiatric: Reports: No Symptoms Hematologic/Lymphatic: Reports: No Symptoms Immunologic: Reports: No Symptoms ED EXAM, SKIN/RASH Exam: See Below Exam Limited By: No Limitations General Appearance: Alert, No Apparent Distress Ears: Normal External Exam Nose: Normal Inspection Throat/Mouth: Normal Inspection Head: Normocephalic, Other (approximately 1 cm laceration lateral to the right eyebrow) Neck: Normal Inspection Respiratory/Chest: Lungs Clear Cardiovascular: Regular Rate, Rhythm GI/Abdominal: Normal Bowel Sounds, Soft, Non-Tender, No Distention Rectal (Males) Exam: Normal Exam Back Exam: Normal Inspection Extremities: Normal Inspection, Normal Range of Motion Neurological: Alert, Oriented Psychiatric: Normal Affect, Normal Mood Skin: Warm, Dry ED SKIN PROCEDURES - Laceration/Wound Repair Right Forehead Appearance: Superficial Anesthetic Type: Local Local Anesthesia - Lidocaine (Xylocaine): 1% with EPI Local Anesthetic Volume: 1cc Exploration/Debridement/Repair: Wound Explored, No Foreign Material Found Closed with: Sutures Lac/Wound length In cm: 1 Suture Size: 5-0 # of Sutures: 1 Suture Type: Nylon Tetanus Status Addressed: Yes Course - Vital Signs Last Recorded V/S: Last Vital Signs Temp 35.5 C 12/26/18 12:10 Pulse 71 12/26/18 12:10 Resp 16 12/26/18 12:10 BP 143/70 H 12/26/18 12:10 Pulse Ox 94 L 12/26/18 12:10 - Orders/Labs/Meds Meds: Medications Discontinued Medications Generic Name Dose Route Start Last Admin Trade Name Timothy PRN Reason Stop Dose Admin Lidocaine/Epinephrine 5 ml 12/26/18 14:33 12/26/18 14:38 Xylocaine 1% With Epinephrine 1:100,000 INJECT 12/26/18 14:34 5 ml NOW STA Administration - Re-Assessments/Exams Free Text/Narrative Re-Assessment/Exam: 88 yo with mechanical fall and laceration to face Obtained CT head - unremarkable. No neck pain, neuro intact, very reliable exam so did not perform neck CT Some right sided chest wall tenderness, unremarkable CXR Laceration repaired as above Tdap TD Instructed on wound cares and signs of infection Will f/u for suture removal next week. 12/26/18 18:30 Departure - Departure Time of Disposition: 15:15 Disposition: Home, Self-Care 01 Clinical Impression: Facial laceration Qualifiers: Encounter type: initial encounter Qualified Code(s): S01.81XA - Laceration without foreign body of other part of head, initial encounter Fall (on)(from) sidewalk curb, initial encounter Qualifiers: Encounter type: initial encounter Qualified Code(s): W10.1XXA - Fall (on)(from ) sidewalk curb, initial encounter - Discharge Information *PRESCRIPTION DRUG MONITORING PROGRAM REVIEWED*: No *COPY OF PRESCRIPTION DRUG MONITORING REPORT IN PATIENT FRANK: No Instructions: Facial Laceration, Laceration Care, Adult Referrals: Luci Tate MD [Primary Care Provider] - Forms: ED Department Discharge Additional Instructions: Please see a doctor early next week for suture removal. Watch for signs of infection as discussed
== END 2018-12-26 15:45 | disposition home or self-care (01) ==
LOC: JP.ED 11:44
DX: S01.81XA Laceration without foreign body of other part of head, initial encounter (principal); K21.9 Gastro-esophageal reflux disease without esophagitis; Z79.82 Long term (current) use of aspirin; Z98.49 Cataract extraction status, unspecified eye; Z90.49 Acquired absence of other specified parts of digestive tract; Z86.73 Personal history of transient ischemic attack (TIA), and cerebral infarction without residual deficits; Z86.2 Personal history of diseases of the blood and blood-forming organs and certain disorders involving the immune mechanism; W10.1XXA Fall (on)(from) sidewalk curb, initial encounter
CPT/HCPCS: 12011; 70450; 71046; 99282; 99283-25

== ENCOUNTER 2019-11-09 02:13 | Emergency (ER) | payer OTHER ==
[2019-11-09 02:18] VITALS: BP 145/71; PULSE 66
--- NOTE | 2019-11-09 02:38 | EDM.PDOC ---
ED HPI GENERAL MEDICAL PROBLEM - General Chief Complaint: General Stated Complaint: MEDICAL [facility] Time Seen by Provider: 11/09/19 02:34 Source of Information: Reports: Patient, RN Notes Reviewed History Limitations: Reports: No Limitations - History of Present Illness INITIAL COMMENTS - FREE TEXT/NARRATIVE: 89-year-old gentleman presents emergency department today following a fall at assisted living via EMS services,. He states he does have some balance issues and has fallen in the past at this particular event was getting up to go to the bathroom lost his balance fell backwards landing on his tailbone which is tender and then hit his head which then produced some bleeding. Denies any headache no nausea vomiting no difficulty with any movements bleeding is controlled by the time he arrives to the emergency department - Related Data Allergies Allergy/AdvReac Type Severity Reaction Status Date / Time No Known Allergies Allergy Verified 11/09/19 02:16 Home Meds: Home Meds Omeprazole [priLOSEC OTC] 20 mg PO DAILY 05/04/15 [History] Calcium Carbonate/Vitamin D3 [Os-Tonio 500+D] 1 tab PO TID 08/16/16 [History] Cholecalciferol (Vitamin D3) [Vitamin D] 2,000 unit PO ASDIRECTED 08/16/16 [History] cycloSPORINE [Restasis Multidose] 1 drop EYEBOTH BID 08/16/16 [History] Aspirin 325 mg PO DAILY 12/08/16 [History] Past Medical History HEENT History: Reports: Cataract, Hard of Hearing, Impaired Vision, Other (See Below) Other HEENT History: wears glasses; bilat hearing aides; cornea problem,,,left ear deaf Cardiovascular History: Reports: Aneurysm, Blood Clots/VTE/DVT Gastrointestinal History: Reports: Colon Polyp, GERD, Hemorrhoids, Other (See Below) Other Gastrointestinal History: ulcers Genitourinary History: Reports: Prostate Disorder, Other (See Below) Other Genitourinary History: Prostate cancer Musculoskeletal History: Reports: Arthritis, Fracture, Osteoporosis, Other (See Below) 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 R knee pain Neurological History: Reports: CVA, Other (See Below) Other Neuro History: crushed vertebrae in back 2016 Endocrine/Metabolic History: Reports: Vitamin D Deficiency Hematologic History: Reports: Anemia, Blood Transfusion(s) Oncologic (Cancer) History: Reports: Malignant Melanoma, Prostate, Other (See Below) Other Oncologic History: skin caner Dermatologic History: Reports: Melanoma, Other (See Below) Other Dermatologic History: skin cancer - Infectious Disease History Infectious Disease History: Reports: Chicken Pox, Measles, Mumps, Pertussis (Whooping Cough) - Past Surgical History Head Surgeries/Procedures: Reports: None HEENT Surgical History: Reports: Cataract Surgery, LASIK, Tonsillectomy Cardiovascular Surgical History: Reports: None GI Surgical History: Reports: Appendectomy, Cholecystectomy, Colonoscopy, EGD, Hernia, Inguinal, Hernia Repair/Other Male Surgical History: Reports: Prostate Biopsy, Other (See Below) Other Male Surgeries/Procedures: prostates cancer. radiation Endocrine Surgical History: Reports: None Neurological Surgical History: Reports: None Musculoskeletal Surgical History: Reports: Knee Replacement Oncologic Surgical History: Reports: None Dermatological Surgical History: Reports: Skin Biopsy Social & Family History - Family History Neurological: Reports: CVA Hematologic: Reports: Anemia - Tobacco Use Smoking Status *Q: Never Smoker - Caffeine Use Caffeine Use: Reports: Coffee ED ROS GENERAL - Review of Systems Review Of Systems: See Below Constitutional: Reports: No Symptoms HEENT: Reports: No Symptoms Respiratory: Reports: No Symptoms Cardiovascular: Reports: No Symptoms GI/Abdominal: Reports: No Symptoms : Reports: No Symptoms Musculoskeletal: Reports: No Symptoms Skin: Reports: Bruising Neurological: Reports: No Symptoms ED EXAM, GENERAL - Physical Exam Exam: See Below Exam Limited By: No Limitations General Appearance: Alert, WD/WN, No Apparent Distress Eye Exam: Bilateral Eye: EOMI, Normal Inspection, PERRL Ears: Normal External Exam, Normal Canal, Hearing Grossly Normal, Normal TMs, Other (Hearing aid in place in the right side) Head: Normocephalic, Other (Bruising small hematoma I do not appreciate any laceration requiring repair) Neck: Normal Inspection, Supple, Non-Tender, Full Range of Motion Respiratory/Chest: No Respiratory Distress, Lungs Clear, Normal Breath Sounds, No Accessory Muscle Use, Chest Non-Tender Cardiovascular: Regular Rate, Rhythm, No Murmur GI/Abdominal: Soft, Non-Tender Back Exam: Normal Inspection, Full Range of Motion, Other (Slight tenderness at the coccyx). No: CVA Tenderness (R), CVA Tenderness (L), Paraspinal Tenderness, Vertebral Tenderness Extremities: Other (No tenderness shoulders elbows wrists bilaterally pelvic rocks is negative no tenderness at knees or ankles bilaterally) Neurological: Alert, Oriented, Normal Cognition Course - Vital Signs Last Recorded V/S: Last Vital Signs Temp 97.1 F 11/09/19 02:14 Pulse 66 11/09/19 02:14 Resp 20 11/09/19 02:14 BP 145/71 H 11/09/19 02:14 Pulse Ox 92 L 11/09/19 02:14 Departure - Departure Time of Disposition: 03:33 Disposition: Home, Self-Care 01 Condition: Fair Clinical Impression: Head injury Qualifiers: Encounter type: initial encounter Qualified Code(s): S09.90XA - Unspecified injury of head, initial encounter - Discharge Information Referrals: PCP,None [Primary Care Provider] - Forms: ED Department Discharge Additional Instructions: Follow-up with your primary care as needed, call return to the emergency department worsening of symptoms Sepsis Event Note (ED) - Evaluation Sepsis Screening Result: No Definite Risk - Focused Exam Vital Signs: Vital Signs Temp Pulse Resp BP Pulse Ox 11/09/19 02:14 97.1 F 66 20 145/71 H 92 L - Assessment/Plan Plan: Assessment Acuity = acute Site and laterality = head injury Etiology = secondary to fall Manifestations = none Location of injury = Home Lab values = CT scan of the head negative for any acute process Plan I did review CT scan results with him he can follow-up with his primary care as needed This note was dictated using [employer] voice recognition software please call with any questions on syntax or grammar.
--- NOTE | 2019-11-09 03:24 | CRLCT ---
INDICATION: Fall head injury TECHNIQUE: CT Head without i.v. contrast. COMPARISON: 08/20/2018 FINDINGS: CSF space: Unremarkable for age. 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 Mild patchy regions of low attenuation are present in the periventricular white matter, likely due to chronic microvascular ischemic changes. No mass-effect or midline shift is seen. Mild diffuse cortical atrophy is noted. Calvarium: The visualized paranasal sinuses are well aerated. The mastoid air cells are clear. The patient is status post bilateral cataract removal. The calvarium is unremarkable in appearance with no fractures identified. IMPRESSION: 1. No evidence of acute infarction, intracranial hemorrhage, or mass-effect seen. Dictated by Chuy Pinon MD @ 11/09/2019 3:22:35 AM Please note that all CT scans at this facility use dose modulation, iterative reconstruction, and/or weight-based dosing when appropriate to reduce radiation dose to as low as reasonably achievable. Dictated by: Chuy Pinon MD @ 11/09/2019 03:22:38 (Electronically Signed)
== END 2019-11-09 03:59 | disposition home or self-care (01) ==
LOC: JP.ED 02:13
DX: S00.93XA Contusion of unspecified part of head, initial encounter (principal); M19.90 Unspecified osteoarthritis, unspecified site; K21.9 Gastro-esophageal reflux disease without esophagitis; Z79.82 Long term (current) use of aspirin; Z79.899 Other long term (current) drug therapy; Z86.73 Personal history of transient ischemic attack (TIA), and cerebral infarction without residual deficits; W01.10XA Fall on same level from slipping, tripping and stumbling with subsequent striking against unspecified object, initial encounter
CPT/HCPCS: 70450; 99284-25

== ENCOUNTER 2020-10-08 06:37 | Emergency (ER) | payer OTHER ==
[2020-10-08 07:05] VITALS: BP 127/66; PULSE 74
[2020-10-08] MEDS ORDERED: Ketorolac 30 MG/ML SDV IM ONE (07:45)
[2020-10-08] MEDS ORDERED: Acetaminophen/HYDROcodone 325-5 MG Tab PO ONE (07:45)
--- NOTE | 2020-10-08 07:50 | EDM.PDOC ---
ED HPI GENERAL MEDICAL PROBLEM - General Chief Complaint: Back Pain or Injury Stated Complaint: BACK PAIN Time Seen by Provider: 10/08/20 07:47 Source of Information: Reports: Patient, Family History Limitations: Reports: No Limitations - History of Present Illness INITIAL COMMENTS - FREE TEXT/NARRATIVE: pt has a history of falls but has not had a recent fall. He developed severe pain in the rt lower cervical area. He was unable to sleep last nite. Onset: Gradual, Other (pt has had pain for 3 weeks. ) Duration: Day(s): Location: Reports: Neck, Radiates to, Other ( pain does go down the rt arm. ) Associated Symptoms: Reports: Other (pain going to the rt arm. ) right upper back pain Pain Score (Numeric/FACES): 10 - Related Data Allergies Allergy/AdvReac Type Severity Reaction Status Date / Time No Known Allergies Allergy Verified 10/08/20 07:17 Home Meds: Home Meds Omeprazole [priLOSEC OTC] 20 mg PO ASDIRECTED 05/04/15 [History] Calcium Carbonate/Vitamin D3 [Os-Tonio 500+D] 1 tab PO TID 08/16/16 [History] Cholecalciferol (Vitamin D3) [Vitamin D] 1,000 unit PO DAILY 08/16/16 [History] cycloSPORINE [Restasis Multidose] 1 drop EYEBOTH BID 08/16/16 [History] Aspirin 325 mg PO DAILY 12/08/16 [History] Past Medical History HEENT History: Reports: Cataract, Hard of Hearing, Impaired Vision, Other (See Below) Other HEENT History: wears glasses; bilat hearing aides; cornea problem,,,left ear deaf Cardiovascular History: Reports: Aneurysm, Blood Clots/VTE/DVT Gastrointestinal History: Reports: Colon Polyp, GERD, Hemorrhoids, Other (See Below) Other Gastrointestinal History: ulcers Genitourinary History: Reports: Prostate Disorder, Other (See Below) Other Genitourinary History: Prostate cancer Musculoskeletal History: Reports: Arthritis, Fracture, Osteoporosis, Other (See Below) 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 R knee pain Neurological History: Reports: CVA, Other (See Below) Other Neuro History: crushed vertebrae in back 2016 Endocrine/Metabolic History: Reports: Vitamin D Deficiency Hematologic History: Reports: Anemia, Blood Transfusion(s) Oncologic (Cancer) History: Reports: Malignant Melanoma, Prostate, Other (See Below) Other Oncologic History: skin caner Dermatologic History: Reports: Melanoma, Other (See Below) Other Dermatologic History: skin cancer - Infectious Disease History Infectious Disease History: Reports: Chicken Pox, Measles, Mumps, Pertussis (Whooping Cough) - Past Surgical History Head Surgeries/Procedures: Reports: None HEENT Surgical History: Reports: Cataract Surgery, LASIK, Tonsillectomy Cardiovascular Surgical History: Reports: None GI Surgical History: Reports: Appendectomy, Cholecystectomy, Colonoscopy, EGD, Hernia, Inguinal, Hernia Repair/Other Male Surgical History: Reports: Prostate Biopsy, Other (See Below) Other Male Surgeries/Procedures: prostates cancer. radiation Endocrine Surgical History: Reports: None Neurological Surgical History: Reports: None Musculoskeletal Surgical History: Reports: Knee Replacement Other Musculoskeletal Surgeries/Procedures:: both knees , right twice Oncologic Surgical History: Reports: None Dermatological Surgical History: Reports: Skin Biopsy Social & Family History - Family History Neurological: Reports: CVA Hematologic: Reports: Anemia - Tobacco Use Tobacco Use Status *Q: Former Tobacco User Years of Tobacco use: 10 Packs/Tins Daily: 0.5 Used Tobacco, but Quit: Yes Month/Year Tobacco Last Used: 01/1962 Second Hand Smoke Exposure: Yes - Caffeine Use Caffeine Use: Reports: Coffee - Recreational Drug Use Recreational Drug Use: No ED ROS GENERAL - Review of Systems Review Of Systems: See Below Constitutional: Reports: No Symptoms HEENT: Reports: No Symptoms Respiratory: Reports: No Symptoms Cardiovascular: Reports: No Symptoms Endocrine: Reports: No Symptoms GI/Abdominal: Reports: No Symptoms : Reports: No Symptoms Musculoskeletal: Reports: Neck Pain, Other (pt has severe pain in the rt lower cervical area. ) Skin: Reports: No Symptoms Neurological: Reports: Other ( radicular pain down the rt arm. ) ED EXAM, UPPER BACK/NECK PAIN - Physical Exam Exam: See Below Text/Narrative:: pt is having severe pain in the rt post cervical area he is not able to rest. He is having radicular pain down the rt arm. Exam Limited By: No Limitations General Appearance: Alert, Anxious, Moderate Distress Ears Exam: Normal TMs Nose Exam: Normal Inspection Throat/Mouth Exam: Normal Inspection Head Exam: Atraumatic Neck Exam: Other (pt is very tender on the rt post cervical area. If he moves his arm he has shooting pain down the rt arm. ) Cardiovascular/Respiratory: Regular Rate, Rhythm GI/Abdominal: Soft, Non-Tender (Male) Exam: Deferred Rectal (Males) Exam: Deferred Back Exam: Normal Inspection Extremities: Normal Inspection Neurologic: Alert Psychiatric: Anxious Course - Vital Signs Last Recorded V/S: Last Vital Signs Temp 36.6 C 10/08/20 07:16 Pulse 74 10/08/20 07:16 Resp 16 10/08/20 07:16 BP 127/66 10/08/20 07:16 Pulse Ox 94 L 10/08/20 07:16 - Orders/Labs/Meds Meds: Medications Discontinued Medications Generic Name Dose Route Start Last Admin Trade Name Freq PRN Reason Stop Dose Admin Hydrocodone Bitart/Acetaminophen 1 tab 10/08/20 07:45 10/08/20 07:54 Acetaminophen/Hydrocodone 325-5 Mg Tab PO 10/08/20 07:46 1 tab ONETIME ONE Administration Ketorolac Tromethamine 30 mg 10/08/20 07:45 10/08/20 07:53 Ketorolac 30 Mg/Ml Sdv IM 10/08/20 07:46 30 mg ONETIME ONE Administration - Re-Assessments/Exams Free Text/Narrative Re-Assessment/Exam: 10/08/20 09:55 pt had a cat sdan of the cervical spine which showed some spurring in the lower cervical spine This appears to be causing some nerve impingement. Pt did get good reief with the pain meds. 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 follow up at the [place]-- He is seen in [place]. Sepsis Event Note (ED) - Evaluation Sepsis Screening Result: No Definite Risk
--- NOTE | 2020-10-08 09:15 | CT ---
Cervical Spine wo Cont CLINICAL HISTORY: Severe neck pain TECHNIQUE: Multiple CT sections were taken through the cervical spine in the transaxial projection. Coronal and sagittal views were reconstructed. Images were viewed at bone as well as soft tissue windows on a digital workstation. Auto dosage reduction and iterative reconstruction techniques employed. FINDINGS: Cervical vertebral body heights are well-maintained. There is mild disc space narrowing at C4-5 and C5-6. There are scattered disc space narrowing at C6-7. There is spondylosis throughout the lower cervical spine. There is a minimal anterolisthesis of C7 on T1. This is unchanged since 2016. Pedicles appear intact. There is severe osteoarthropathy throughout the cervical apophyseal joints. There is some spurring at the uncovertebral joints. This causes some neural foraminal encroachment at C4-5 on the right and C6-7 bilaterally. 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
== END 2020-10-08 10:18 | disposition home or self-care (01) ==
LOC: JP.ED 06:37
DX: M47.812 Spondylosis without myelopathy or radiculopathy, cervical region (principal); K21.9 Gastro-esophageal reflux disease without esophagitis; Z79.899 Other long term (current) drug therapy; Z79.82 Long term (current) use of aspirin
CPT/HCPCS: 72125; 96372; 99283; A9270; J1885